=== PATIENT | female | born 1985 | race Caucasian/White ===

== ENCOUNTER 2020-11-08 05:31 | Inpatient (IN) | payer MEDICAID ==
[~2020-11-08] VITALS: Ht 167.6 cm; Wt 111.6 kg
[2020-11-08 06:41] LABS: Basophils # (auto) 0.1 10 ^3/uL (0-0.2); Basophils % (auto) 0.3 % (0.0-2.0); Eosinophils # (auto) 0 10 ^3/uL (0-0.8); Eosinophils % (auto) 0.2 % (0.0-7.0); Hematocrit 36.9 % (36.0-46.0); Hemoglobin 12.8 g/dL (12.2-16.2); Lymphocytes # (auto) 0.9 10 ^3/uL (0.4-5.4); Lymphocytes % (auto) 5.2 % (10.0-50.0); Mean Corpuscular Hemoglobin 30.7 pg (28.0-32.0); Mean Corpuscular Hgb Conc. 34.6 g/dL (32.0-36.0); Mean Corpuscular Volume 88.7 fL (80.0-100.0); Monocytes # (auto) 0.7 10 ^3/uL (0-1.3); Neutrophils # (auto) 15.4 10 ^3/uL (1.6-8.6); Neutrophils % (auto) 90.3 % (37.0-80.0); Red Blood Cells 4.16 10^6/uL (4.0-5.20); Red Cell Distribution Width 13.9 % (11.8-14.3)
[2020-11-08] MEDS ORDERED: KETOROLAC TROMETH 30 MG/ML 1ML VIAL IV ONE (07:00)
[2020-11-08] MEDS ORDERED: SODIUM CHLORIDE 0.9% 1,000 ML IV ONE ×3 (07:00→17:00)
[2020-11-08] MEDS ORDERED: ONDANSETRON HCL 4 MG/2 ML VIAL IV ONE (07:00)
[2020-11-08 07:03] LABS: Albumin 2.9 g/dL (3.4-5.0); Calcium 8.6 mg/dL (8.5-10.1)
[2020-11-08 07:07] LABS: BUN/Creatinine Ratio 16.2; Total Protein 7.5 g/dL (6.4-8.2)
[2020-11-08] MEDS ORDERED: cefTRIAXone 1GM/50ML D5W 50 ML IV ONE (07:30)
[2020-11-08] MEDS ORDERED: metroNIDAZOLE 500MG/100ML 100 ML IV ONE (07:30)
[2020-11-08 08:55] LABS: Lactic Acid w/Reflex 2.2 mmol/L (0.4-2.0)
[2020-11-08 11:57] LABS: Urine Bacteria FEW /hpf (None Seen); Urine Blood TRACE /uL (Negative); Urine Mucus FEW (None Seen); Urine WBC 746 /hpf (0 - 5); Urine WBC Clumps PRESENT /hpf (None Seen)
[2020-11-08] MEDS ORDERED: NITROGLYCERIN 0.4 MG SL TAB SL PRN (15:15)
[2020-11-08] MEDS ORDERED: MORPHINE SULFATE INJECTION 2 MG/ML SYRG IV PRN (15:15)
[2020-11-08] MEDS ORDERED: ACETAMINOPHEN 325 MG TAB PO PRN (15:15)
[2020-11-08] MEDS ORDERED: ONDANSETRON HCL 4 MG/2 ML VIAL IV PRN (15:15)
[2020-11-08] MEDS ORDERED: MORPHINE SULFATE 4 MG/ML SYR/VIAL IV PRN (15:15)
[2020-11-08] MEDS ORDERED: PIPERACILLIN-TAZO 4.5GM 100 ML IV SCH (18:37)
[2020-11-08 19:11] LABS: INR 1.06 (0.9-1.15)
[2020-11-08 21:00] VITALS: BP 110/68
[2020-11-09 04:40] VITALS: BP 122/75
[2020-11-09 05:28] LABS: Basophils # (auto) 0.1 10 ^3/uL (0-0.2); Basophils % (auto) 0.4 % (0.0-2.0); Eosinophils # (auto) 0.1 10 ^3/uL (0-0.8); Eosinophils % (auto) 0.3 % (0.0-7.0); Hematocrit 33.8 % (36.0-46.0); Hemoglobin 11.6 g/dL (12.2-16.2); Lymphocytes # (auto) 1.5 10 ^3/uL (0.4-5.4); Lymphocytes % (auto) 8.7 % (10.0-50.0); Mean Corpuscular Hemoglobin 30.3 pg (28.0-32.0); Mean Corpuscular Hgb Conc. 34.3 g/dL (32.0-36.0); Mean Corpuscular Volume 88.4 fL (80.0-100.0); Monocytes # (auto) 0.7 10 ^3/uL (0-1.3); Monocytes % (auto) 3.8 % (0.0-12.0); Neutrophils % (auto) 86.8 % (37.0-80.0); Red Blood Cells 3.82 10^6/uL (4.0-5.20); White Blood Cell 17.3 10^3/uL (4.4-10.8)
[2020-11-09 05:53] LABS: Albumin 2.4 g/dL (3.4-5.0); Potassium 3.5 mmol/L (3.5-5.1)
[2020-11-09 05:59] LABS: BUN/Creatinine Ratio 16.4; Bilirubin, Total 1.6 mg/dL (0.2-1.0); Total Protein 6.7 g/dL (6.4-8.2)
[2020-11-09] MEDS ORDERED: PIPERACILLIN-TAZO 4.5GM 100 ML IV SCH ×2 (08:00→21:00)
[2020-11-09] MEDS ORDERED: cefTRIAXone 1GM/50ML D5W 50 ML IV SCH (09:00)
[2020-11-09 09:40] VITALS: BP 142/84
[2020-11-09] MEDS ORDERED: ENOXAPARIN SOD 40 MG/0.4 ML SYRINGE SC SCH (10:00)
[2020-11-09 13:00] VITALS: BP 120/79
[2020-11-09 15:07] LABS: Amylase 22 U/L (25-115); Lipase 52 U/L (73-393)
[2020-11-09 21:00] VITALS: BP 138/87
[2020-11-09] MEDS ORDERED: PANTOPRAZOLE 40 MG/10 ML VIAL INJ IV SCH (22:00)
== END 2020-11-09 21:45 | disposition left against medical advice (07) ==
LOC: ER 05:31 → OVERFLOW 15:10 → WEST WING 21:00
PROVIDERS: ADMIT Internal Medicine; ATTEND Internal Medicine
DX: K80.20 Calculus of gallbladder without cholecystitis without obstruction (principal); E87.2 Acidosis; E88.09 Other disorders of plasma-protein metabolism, not elsewhere classified; R16.0 Hepatomegaly, not elsewhere classified; D72.829 Elevated white blood cell count, unspecified; N39.0 Urinary tract infection, site not specified; Z20.822 Contact with and (suspected) exposure to COVID-19; R73.9 Hyperglycemia, unspecified; F17.210 Nicotine dependence, cigarettes, uncomplicated; E66.01 Morbid (severe) obesity due to excess calories; Z68.39 Body mass index [BMI] 39.0-39.9, adult; Z82.3 Family history of stroke; Z82.49 Family history of ischemic heart disease and other diseases of the circulatory system
CPT/HCPCS: 36415; 74176; 74181; 76705; 78226; 80053; 81001; 82150; 83605; 83690; 85025; 85610; 86850; 86900; 86901; 87040; 87426; 96365; 96375; G0378; J0696; J1885; J2405; J2543; J3490

== ENCOUNTER 2023-01-11 04:12 | Emergency (ER) | payer MEDICAID ==
[~2023-01-11] VITALS: Ht 167.6 cm; Wt 121.6 kg
[2023-01-11] MEDS ORDERED: cloNIDine HCL 0.1 MG TAB PO ONE (04:45)
[2023-01-11 06:10] VITALS: BP 143/102; PULSE 100; RESP 18; O2SAT 99
[2023-01-11] MEDS ORDERED: PROM1SOL4 PO (07:34)
[2023-01-11] MEDS ORDERED: AZIT500T66 PO (07:34)
[2023-01-11] MEDS ORDERED: TRIA37.587 PO (07:35)
== END 2023-01-11 07:47 | disposition home or self-care (01) ==
LOC: ER 04:12
DX: J03.90 Acute tonsillitis, unspecified (principal); J20.9 Acute bronchitis, unspecified; I10 Essential (primary) hypertension; F17.210 Nicotine dependence, cigarettes, uncomplicated

== ENCOUNTER 2023-04-20 00:55 | Emergency (ER) | payer MEDICAID ==
[~2023-04-20] VITALS: Ht 167.6 cm; Wt 117.0 kg
[~2023-04-20 00:55] MED LIST: AZIT500T66 PO; PROM1SOL4 PO; TRIA37.587 PO
[2023-04-20] MEDS: cloNIDine HCL 0.1 MG TAB PO ONE (01:19)
[2023-04-20 02:02] LABS: Basophils # (auto) 0.1 10 ^3/uL (0-0.2); Basophils % (auto) 0.9 % (0.0-2.0); Eosinophils # (auto) 0.2 10 ^3/uL (0-0.8); Eosinophils % (auto) 2.4 % (0.0-7.0); Hematocrit 41.8 % (36.0-46.0); Lymphocytes # (auto) 2.2 10 ^3/uL (0.4-5.4); Lymphocytes % (auto) 25.5 % (10.0-50.0); Mean Corpuscular Hemoglobin 29.9 pg (28.0-32.0); Mean Corpuscular Hgb Conc. 33.5 g/dL (32.0-36.0); Mean Corpuscular Volume 89.3 fL (80.0-100.0); Monocytes # (auto) 0.6 10 ^3/uL (0-1.3); Monocytes % (auto) 6.3 % (0.0-12.0); Neutrophils # (auto) 5.7 10 ^3/uL (1.6-8.6); Neutrophils % (auto) 64.9 % (37.0-80.0); Nucleated Red Blood Cells % 0.1 %; Red Blood Cells 4.68 10^6/uL (4.0-5.20); Red Cell Distribution Width 14.2 % (11.8-14.3); White Blood Cell 8.8 10^3/uL (4.4-10.8)
[2023-04-20 02:30] LABS: Alanine Aminotransferase 24 U/L (7-40); Albumin 4.1 g/dL (3.2-4.8); Alkaline Phosphatase 101 U/L (46-116); Anion Gap 6 (5-15); Aspartate Aminotransferase 15 U/L (13-40); BUN/Creatinine Ratio 18.9 (10.0-20.0); Blood Urea Nitrogen 14 mg/dL (9-23); Calcium 8.9 mg/dL (8.7-10.4); Carbon Dioxide 26 mmol/L (20-30); Chloride 109 mmol/L (98-107); Glucose 87 mg/dL (74-106); Potassium 3.5 mmol/L (3.5-5.1); Sodium 141 mmol/L (136-145)
[2023-04-20 02:31] LABS: Bilirubin, Total 0.8 mg/dL (0.2-1.0); Total Protein 7.5 g/dL (5.7-8.2)
[2023-04-20 03:37] VITALS: BP 159/93; PULSE 84; RESP 16; TEMP 97.6
[2023-04-20] MEDS: KETOROLAC TROMETH 60MG/2ML VIAL IM ONE (03:40)
[2023-04-20 03:51] VITALS: O2SAT 100
[2023-04-20] MEDS ORDERED: AML5T PO (04:09)
[2023-04-20] MEDS ORDERED: LOSA50TA46 PO (04:09)
== END 2023-04-20 04:43 | disposition home or self-care (01) ==
LOC: ER 00:55
DX: I10 Essential (primary) hypertension (principal); J03.90 Acute tonsillitis, unspecified; G43.909 Migraine, unspecified, not intractable, without status migrainosus; F17.210 Nicotine dependence, cigarettes, uncomplicated; Z79.2 Long term (current) use of antibiotics; Z79.899 Other long term (current) drug therapy
CPT/HCPCS: 36415; 70450; 80053; 85025; 93005; J1885

== ENCOUNTER 2023-10-29 02:45 | Emergency (ER) | payer MEDICAID ==
[~2023-10-29] VITALS: Ht 167.6 cm; Wt 110.0 kg
[~2023-10-29 02:45] MED LIST changes: +AML5T PO; +LOSA-534 PO
[2023-10-29 02:55] VITALS: BP 179/117; PULSE 88; RESP 20; O2SAT 97
[2023-10-29] MEDS ORDERED: AML5T PO (04:27)
[2023-10-29] MEDS: cloNIDine HCL 0.1 MG TAB PO ONE (04:53)
[2023-10-29] MEDS: IBUPROFEN 600 MG TAB PO ONE (04:53)
== END 2023-10-29 04:47 | disposition home or self-care (01) ==
LOC: ER 02:45
DX: B34.9 Viral infection, unspecified (principal); I10 Essential (primary) hypertension; F17.210 Nicotine dependence, cigarettes, uncomplicated; Z79.899 Other long term (current) drug therapy